=== PATIENT | female | born 1965 | race American Indian/Alaskan Native ===

== ENCOUNTER 2016-08-19 09:59 | Day surgery (SDC) | payer BC ==
[~2016-08-19] VITALS: Ht 157.5 cm; Wt 74.8 kg
[~2016-08-19 09:59] MED LIST: BUPIVACAINE MPF 0.5% 30 ML VIAL. ONE; CETI10TA22 PO; CLINDAMYCIN 600MG PREMIX 50 ML IV PRN; DEXAMETHASONE SOD PHOS 4 MG/ML VIAL ONE; FENTANYL PF 100 MCG/2 ML VIAL. IV PRN; GABA-586 PO; HYDR-971 PO; HYDROMORPHONE 2 MG/ML VIAL. IV PRN; IBUP-1060 PO; IBUP200T6 PO; IV RINGERS,LACTATED 1000ML 1,000 ML IV SCH; LIDOCAINE 1% 1 ML SYRINGE. ID PRN; LIDOCAINE 1% PF 30 ML VIAL. ONE; MORPHINE SULFATE 2 MG/ML DISP.SYRIN. IV PRN; ONDANSETRON PF 4 MG/2 ML VIAL. IV PRN; POVIDONE-IODINE 10% TOPICAL OINTMENT 28GM TUBE. TP ONE; PROAIR HFA8.5 GM INH; PROCHLORPERAZINE 10 MG/2 ML VIAL. IV PRN
[2016-08-19 10:53] LABS: HEMATOCRIT 39.1 % (36.0-47.0); HEMOGLOBIN 13.3 g/dL (12.0-15.5); RED BLOOD COUNT 4.44 x10^6/uL (3.50-5.40); RED CELL DISTRIBUTION WIDTH 13.5 % (11.5-14.5); WHITE BLOOD COUNT 8.4 x10^3/uL (4.0-11.0)
[2016-08-19] MEDS ORDERED: FENTANYL PF 100 MCG/2 ML VIAL. ONE (11:24)
[2016-08-19] MEDS ORDERED: ONDANSETRON PF 4 MG/2 ML VIAL. ONE (11:24)
[2016-08-19] MEDS ORDERED: FAMOTIDINE 20 MG/2 ML VIAL ONE (11:24)
[2016-08-19] MEDS ORDERED: MIDAZOLAM HCL 2 MG/2 ML VIAL. ONE (11:24)
[2016-08-19] MEDS ORDERED: LIDOCAINE 2% 100 MG/5 ML DISP.SYRIN. ONE (11:24)
[2016-08-19] MEDS ORDERED: PROPOFOL 20 ML IV ONE (11:24)
[2016-08-19] MEDS ORDERED: SEVOFLURANE 31 TO 60 MINUTES. IH ONE (12:07)
--- NOTE | 2016-08-19 12:30 | PDOC4 ---
Operative Note Operative Note Surgeon: Berna Pre op DX: Symptomatic hardware, right foot Post op DX: same Procedure: removal of screw, deep right foot Anesthesia LMA with local Hemostasis: right ankle tourniquet at 250mmHg EBL: 0mL Materials: 3-0 vicryl, 4-0 nylon Intraoperative findings: Note slightly prominent screw head medial proximal 1st metatarsal removed without incident Patient tolerated anesthesia and procedure well. Xrays to be taken in PACU. Post op instructions in chart ESTEPHANIA FERRARO DPM Aug 19, 2016 12:30
[2016-08-19] MEDS ORDERED: HYDR-971 PO (12:45)
[2016-08-19] MEDS ORDERED: HYDROCODONE/APAP 5/325MG TABLET. ONE (12:51)
[2016-08-19] MEDS ORDERED: HYDROCODONE/APAP 5/325MG TABLET. PO ONE (13:00)
[2016-08-19 13:10] VITALS: BP 132/82
--- NOTE | 2016-08-19 15:42 | RAD ---
Indication: Post pin removal. Technique: 3 views of the right foot are submitted for review. No comparison is available. Findings: Second digit pin has been removed. Second proximal phalangeal joint appears ankylosed. No fracture or dislocation is apparent. Postsurgical changes at the first tarsometatarsal joint are noted. Degenerative changes at the first metatarsal-phalangeal joint are noted. There likely has also been bunionectomy. There is bone demineralization. Impression: Interval removal of pin from second digit.
--- NOTE | 2016-08-19 18:54 | OP ---
DATE OF SURGERY: 08/19/2016 PREOPERATIVE DIAGNOSIS: Symptomatic hardware, right foot. POSTOPERATIVE DIAGNOSIS: Symptomatic hardware, right foot. PROCEDURE: Removal of deep symptomatic hardware of right foot. SURGEON: Dr. Maile Coronel. ANESTHESIA: LMA with local. HEMOSTASIS: Right ankle tourniquet at 250 mmHg. INDICATIONS: The patient is a 51-year-old female who underwent a Lapidus bunionectomy in April 2017. She was having normal postoperative course until she transitioned into tennis shoe when she started to notice pain and swelling to the medial foot of the right foot. Radiograph taken in the office on 08/14/2016 show satisfactory arthrodesis of the first metatarsal cuneiform joint with questionable prominence of the homerun screw, and thus, discussed with the patient her treatment options to include removal of all hardware versus the singular screw of medial foot. The patient felt that she was not having pain at the top of the foot with the plate and screw, thus she only wanted the singular screw removed which presses in her shoe. Discussed with the patient possible continued pain and swelling. No guarantees were made, discussed the possible complications of infection, need for further surgery, and delayed or nonhealing. The patient signed consent freely, and all questions were answered. DESCRIPTION OF THE PROCEDURE: The patient was transported to the operating room via cart and placed on the operating room table in supine position. Final verification of the surgery and the patient's limb was performed. She was given an LMA and a local modified block to the first ray consisting of 1:1 mixture of 1% lidocaine plain and 0.5% Marcaine plain, 10 mL total. The right foot was prepped and draped in the usual aseptic manner, and a well-padded tourniquet was placed over the right ankle. C-arm fluoroscopy was utilized to position the incision, noted the site of the screw head and marked with ink pen under C-arm fluoroscopy. 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 Next, the wound was copiously irrigated with sterile saline, and the periosteum was reapproximated with a 3-0 Vicryl, and the skin was reapproximated with 3-0 Vicryl and 4-0 nylon. A postoperative injection was given of 4 mg of Decadron, and the wound was dressed with Betadine ointment, Adaptic gauze, 4 x 4, Kerlix, bandage roll, and a Coban. The patient is to keep the dressing clean, dry, and intact. The tourniquet was deflated, and good perfusion was noted at all digits of the right foot. The patient is to be minimal walking in a surgical shoe and elevate the right lower extremity. She will follow up in clinic in 1 week. Postoperative instructions are in the chart. RACHAEL PRIDE MD DR: STEPHANIE/lady JOB#: [id number] / [id number]
--- NOTE | 2016-08-19 19:15 | PDOC2 ---
CONSULT Date of Consult Date of Consult DATE: 08/19/16 TIME: 10:13 Reason for Consult Reason for Consult: pre op clearance Referring Physician Referring Physician: DR WINTER History of Present Illness Reason for Visit: A 51 f with no significant medical problems presented to out pt surgery for hard leroy removal due to increased pain for few weeks, 8/10, worse with walking , She is scheduled for elective surgery by podiatry. , Past Medical History Pulmonary: Asthma Family History Family History: Other Social History ALCOHOL: none Drugs: None Lives: with Family Current Medications Current Medications Current Medications Ondansetron HCl (Zofran) 4 mg PRN Q6HRS PRN IV Nausea; Start 08/19/16 at 07:00 ; Stop 08/19/16 at 13:40; Status DC Fentanyl Citrate (Fentanyl 2ml Vial) 25 mcg PRN Q5MIN PRN IV MILD PAIN; Start 08/19/16 at 07:00; Stop 08/19/16 at 13:40; Status DC Fentanyl Citrate (Fentanyl 2ml Vial) 50 mcg PRN Q5MIN PRN IV MODERATE PAIN; Start 08/19/16 at 07:00; Stop 08/19/16 at 13:40; Status DC Morphine Sulfate 1 mg 1 mg PRN Q10MIN PRN IV SEVERE PAIN; Start 08/19/16 at 07: 00; Stop 08/19/16 at 13:40; Status DC Lactated Ringer's (Iv Lactated Ringers) 1,000 ml @ 30 mls/hr Q24H IV Last administered on 08/19/16t 10:57; Start 08/19/16 at 07:00; Stop 08/19/16 at 13:40 ; Status DC Lidocaine HCl 2 ml 1X PRN PRN ID IV START; Start 08/19/16 at 07:00; Stop at 13:40; Status DC Hydromorphone HCl (Dilaudid) 0.5 mg PRN Q10MIN PRN IV SEVERE PAIN, Second choice; Start 08/19/16 at 07:00; Stop 08/19/16 at 13:40; Status DC Prochlorperazine Edisylate 5 mg 5 mg PACU PRN PRN IV NAUSEA; Start 08/19/16 at 07:00; Stop 08/19/16 at 13:40; Status DC Clindamycin Phosphate (Cleocin 600 Mg Premix) 50 ml @ 100 mls/hr 1X PREOP PRN IV . Last administered on 08/19/16 11:40; Start 08/19/16 at 08:00; Stop at 13:40; Status DC Lidocaine HCl 30 ml STK-MED ONCE .ROUTE Last administered on 08/19/16 11:51; Start 08/19/16 at 08:51; Stop 08/19/16 at 08:52; Status DC Bupivacaine HCl (Sensorcaine Mpf 0.5%) 30 ml STK-MED ONCE .ROUTE Last administered on 08/19/16 11:51; Start 08/19/16 at 08:51; Stop 08/19/16 at 08:52 ; Status DC Povidone Iodine ( Betadine Oint) 28 jaguar STK-MED ONCE TP Last administered on 12:16; Start 08/19/16 at 08:51; Stop 08/19/16 at 08:52; Status DC Dexamethasone Sodium Phosphate (Decadron) 4 mg STK-MED ONCE .ROUTE Last administered on 08/19/16 12:16; Start 08/19/16 at 08:52; Stop 08/19/16 at 08:53 ; Status DC Famotidine (Pepcid) 20 mg STK-MED ONCE .ROUTE ; Start 08/19/16 at 11:24; Stop at 11:25; Status DC Ondansetron HCl 4 mg 4 mg STK-MED ONCE .ROUTE ; Start 08/19/16 at 11:24; Stop at 11:25; Status DC Propofol (Diprivan) 20 ml @ As Directed STK-MED ONCE IV ; Start 08/19/16 at 11: 24; Stop 08/19/16 at 11:25; Status DC Lidocaine HCl 100 mg STK-MED ONCE .ROUTE ; Start 08/19/16 at 11:24; Stop at 11:25; Status DC Midazolam HCl (Versed) 2 mg STK-MED ONCE .ROUTE ; Start 08/19/16 at 11:24; Stop 08/19/16 at 11:25; Status DC Fentanyl Citrate (Fentanyl 2ml Vial) 100 mcg STK-MED ONCE .ROUTE ; Start at 11:24; Stop 08/19/16 at 11:25; Status DC Sevoflurane (Ultane) 30 ml STK-MED ONCE IH ; Start 08/19/16 at 12:07; Stop 08/19 at 12:08; Status DC Acetaminophen/ Hydrocodone Bitart (Lortab 5/325) 1 tab STK-MED ONCE .ROUTE ; Start 08/19/16 at 12:51; Stop 08/19/16 at 12:52; Status DC Acetaminophen/ Hydrocodone Bitart (Lortab 5/325) 1 tab 1X ONCE PO Last administered on 08/19/16t 12:56; Start 08/19/16 at 13:00; Stop 08/19/16 at 13:01 ; Status DC Active Scripts Active Reported Paden 5-325 Tablet (Acetaminophen/Hydrocodone Bitart) 1 Each Tablet 1-2 Tab PO Q4-6HRS Gabapentin 300 Mg Capsule 300 Mg PO QHS Ibuprofen 200 Mg Tablet 400 Mg PO PRN PRN Zyrtec (Cetirizine Hcl) 10 Mg Tablet 10 Mg PO DAILY Proair Hfa Inhaler (Albuterol Sulfate) 8.5 Gm Hfa.aer.ad 1 Puff INH PRN Q6HRS PRN Allergies Allergies: Coded Allergies: Penicillins (Verified Allergy, Intermediate, Swelled up/Rash, 08/19/16) ROS General: No: Appetite, Chills, Fatigue, Malaise, Night Sweats, Other PSYCHOLOGICAL ROS: No: Anxiety, Behavioral Disorder, Concentration difficultie , Decreased libido, Depression, Disorientation, Hallucinations, Hostility, Irritablity, Memory difficulties, Mood Swings, Obsessive thoughts, Other, Physical abuse, Sexual abuse, Sleep disturbances, Suicidal ideation HEENT: No: Epistaxis, Heacaches, Hearing change, Nasal congestion, Nasal discharge, Oral lesions, Other, Sinus pain, Sneezing, Snoring, Sore Throat, Tinnitus, Vertigo, Visual Changes, Vocal changes Hematological and Lymphatic: No: Bleeding Problems, Blood Clots, Blood Transfusions, Brusing, Night Sweats, Other, Pallor, Swollen Lymph Nodes ENDOCRINE: No: Breast Changes, Galactorrhea, Hair Pattern Changes, Hot Flashes , Malaise/lethargy, Mood Swings, Other, Palpitations, Polydipsia/polyuria, Skin Changes, Temperature Intolerance, Unexpected Weight Changes Respiratory: No: Cough, Hemoptysis, Orthopnea, Other, Pleuritic Pain, SOB with excertion, Shortness of breath, Sputum Changes, Stridor, Tachypnea, Wheezing Cardiovascular: No Chest Pain, No Edema, No Lt Headedness, No Orthopnea, No Other, No Palpitations, No Paroxysmal Noc. Dyspnea Musculoskeletal: Yes Joint Pain Neurological: No Behavorial Changes, No Bowel/Bladder ControlChng, No Confusion , No Dizziness, No Gait Disturbance, No Headaches, No Impaired Coord/balance, No Memory Loss, No Numbness/Tingling, No Other, No Seizures, No Speech Problems , No Tremors, No Visual Changes, No Weakness Physical Exam General: Alert, Oriented X3 HEENT: Atraumatic Lungs: Clear to auscultation Heart: Normal S1, Normal S2 Abdomen: Normal bowel sounds, Soft Extremities: No clubbing Skin: No rashes Neuro: Normal speech, Normal tone MUSCULOSKELETAL: No deformity Vitals VITALS Vital Signs Date Time Temp Pulse Resp B/P Pulse Ox O2 Delivery O2 Flow Rate FiO2 08/19/16 13:10 98.4 75 15 132/82 99 Room Air 98.4 08/19/16 12:36 10 Labs Labs Laboratory Tests Test 08/19/16 10:48 White Blood Count 8.4x10^3/uL (4.0-11.0) Red Blood Count 4.44x10^6/uL (3.50-5.40) Hemoglobin 13.3g/dL (12.0-15.5) Hematocrit 39.1% (36.0-47.0) Mean Corpuscular Volume 88fL (79-100) Mean Corpuscular Hemoglobin 30pg (25-35) Mean Corpuscular Hemoglobin Concent 34g/dL (31-37) Red Cell Distribution Width 13.5% (11.5-14.5) Platelet Count 263x10^3/uL (140-400) Laboratory Tests Test 08/19/16 10:48 White Blood Count 8.4x10^3/uL (4.0-11.0) Red Blood Count 4.44x10^6/uL (3.50-5.40) Hemoglobin 13.3g/dL (12.0-15.5) Hematocrit 39.1% (36.0-47.0) Mean Corpuscular Volume 88fL (79-100) Mean Corpuscular Hemoglobin 30pg (25-35) Mean Corpuscular Hemoglobin Concent 34g/dL (31-37) Red Cell Distribution Width 13.5% (11.5-14.5) Platelet Count 263x10^3/uL (140-400) Assessment/Plan Assessment/Plan Right Lower extremity pain due to hard leroy PLAN Hard leroy removal today cbc/bmp Pain control no acute medical issues, very low risk for surgery anticipated DC after procedure. CHIQUITA PRATT MD Aug 19, 2016 19:15
== END 2016-08-19 13:30 | disposition home or self-care (01) ==
LOC: SURG 09:59
PROVIDERS: ATTEND Podiatrist Foot & Ankle Surgery
DX: Z47.2 Encounter for removal of internal fixation device (principal); J45.909 Unspecified asthma, uncomplicated; E66.9 Obesity, unspecified; Z90.49 Acquired absence of other specified parts of digestive tract; Z72.89 Other problems related to lifestyle
CPT/HCPCS: 20680; 36415; 73630; 85027; C1769; J1100; J2250; J2405; J2704; J3010; J3490; S0028

== ENCOUNTER 2016-11-22 03:28 | Inpatient (IN) | payer BC, OTHER ==
[~2016-11-22] VITALS: Ht 157.5 cm; Wt 96.2 kg
[~2016-11-22 03:28] MED LIST changes: -BUPIVACAINE MPF 0.5% 30 ML VIAL. ONE; -CLINDAMYCIN 600MG PREMIX 50 ML IV PRN; -DEXAMETHASONE SOD PHOS 4 MG/ML VIAL ONE; -FENTANYL PF 100 MCG/2 ML VIAL. IV PRN; -HYDROMORPHONE 2 MG/ML VIAL. IV PRN; +IBUP-1227 PO; -IBUP200T6 PO; -IV RINGERS,LACTATED 1000ML 1,000 ML IV SCH; -LIDOCAINE 1% 1 ML SYRINGE. ID PRN; -LIDOCAINE 1% PF 30 ML VIAL. ONE; -MORPHINE SULFATE 2 MG/ML DISP.SYRIN. IV PRN; -ONDANSETRON PF 4 MG/2 ML VIAL. IV PRN; -POVIDONE-IODINE 10% TOPICAL OINTMENT 28GM TUBE. TP ONE; -PROCHLORPERAZINE 10 MG/2 ML VIAL. IV PRN
[2016-11-22] MEDS ORDERED: HYDROmorphone 2 MG/ML VIAL IV ONE (04:30)
[2016-11-22] MEDS ORDERED: ONDANSETRON ODT 4 MG TAB.RAPDIS. PO ONE (04:30)
--- NOTE | 2016-11-22 05:44 | PHYS DOC ---
Past Medical History Past Medical History: No Pertinent History Past Surgical History: Other Additional Past Surgical Histo: R. FOOT Alcohol Use: Rarely Drug Use: None Adult General Chief Complaint Chief Complaint: LOWEREXTREMITY INJURY HPI HPI Patient is a 51 year old female who presents here today secondary to falling over a wire. Patient reports that she was taking a walk in her street and of the corner there was a wire that she tripped over. Patient has any fevers shakes chills nausea vomiting diarrhea or abdominal pain. Patient has no history of hypertension diabetes liver longer kidney problems. Patient had no abdominal surgeries in the past. Patient does smoke no alcohol or drugs. X-ray of left knee and tib-fib both revealed a comminuted depressed tibial plateau with a fracture of the fibular metaphysis. Review of systems Constitutional: Denies fever or chills [] Eyes: Denies change in visual acuity, redness, or eye pain [] All other review systems are negative except as documented in the history of present illness portion. Physical exam Constitutional: Well developed, well nourished, no acute distress, non-toxic appearance. [] HENT: Normocephalic, atraumatic, bilateral external ears normal, oropharynx moist, no oral exudates, nose normal. [] Eyes: conjunctiva normal, no discharge. [] Neck: Normal range of motion, no tenderness, supple, no stridor. [] Cardiovascular:Heart rate regular rhythm, Lungs & Thorax: Bilateral breath sounds clear to auscultation [] Abdomen: Bowel sounds normal, soft, no tenderness, no masses, no pulsatile masses. [] Skin: Warm, dry, Back: No tenderness, Extremities: Soft tissue swelling deformity tenderness to her knee. Exam limited secondary to severe pain. Neurologic: Alert and oriented X 3, normal motor function, normal sensory function, no focal deficits noted. [] Psychologic: Affect normal, judgement normal, mood normal. [] Assessment and plan 51-year-ol female who presents here today with a fracture of her left tibia and fibula. This is a comminuted fracture the tibial plateau is depressed Case discussed with Dr. Jaimes who is agreed to assist us with management of this pain. Patient be admitted to the medical service and he will assist with surgery. Patient was treated with Dilaudid IV to assist with the pain. Current Medications Current Medications Current Medications Medications (Trade) Dose Ordered Sig/Rahul Start Time Stop Time Status Last Admin Dose Admin Fentanyl Citrate (Fentanyl 2ml Vial) 50 mcg PRN Q1HR PRN 11/22/16 05:45 11/23/16 05:44 DC 11/22/16 11:48 50 MCG Hydromorphone HCl (Dilaudid) 1 mg 1X ONCE 11/22/16 04:30 11/22/16 04:31 DC 11/22/16 04:20 1 MG Ondansetron HCl (Zofran Odt) 4 mg 1X ONCE 11/22/16 04:30 11/22/16 04:31 DC 11/22/16 04:20 4 MG Ondansetron HCl (Zofran) 4 mg PRN Q8HRS PRN 11/22/16 05:45 11/23/16 05:44 DC 11/22/16 18:18 4 MG Sodium Chloride 1,000 ml @ 125 mls/hr Q8H 11/22/16 05:44 11/23/16 05:43 DC 11/22/16 21:54 125 MLS/HR Allergies Allergies Allergies Coded Allergies Type Severity Reaction Last Updated Verified Penicillins Allergy Intermediate Swelled up/Rash 08/19/16 Yes Current Patient Data Vital Signs Vital Signs Date Time Temp Pulse Resp B/P (MAP) Pulse Ox O2 Delivery O2 Flow Rate FiO2 11/22/16 03:42 98.5 86 16 97 Room Air 98.5 EKG EKG [] Radiology/Procedures Radiology/Procedures [] Course & Med Decision Making Course & Med Decision Making Pertinent Labs and Imaging studies reviewed. (See chart for details) [] Dragon Disclaimer Dragon Disclaimer This electronic medical record was generated, in whole or in part, using a voice recognition dictation system. Departure Departure Impression: Primary Impression: Tibial plateau fracture, left Additional Impression: Fracture of head of fibula Disposition: ADMITTED INPATIENT Admitting Physician: Kashmir Jones Referrals: NO PCP (PCP) Scripts Sennosides/Docusate Sodium (SENNA-TIME S TABLET) 1 Each Tablet 1 TAB PO PRN BID Y for CONSTIPATION, #10 TAB Prov: SONAM CALDERON MD 11/24/16 Oxycodone Hcl/Acetaminophen (OXYCODONE-ACETAMINOPHEN 10-325) 1 Each Tablet 1 TAB PO PRN Q4HRS Y for PAIN, #20 TAB Prov: SONAM CALDERON MD 11/24/16 Problem Qualifiers Primary Impression: Tibial plateau fracture, left Encounter type: initial encounter Fracture type: closed Qualified Codes: S82.142A - Displaced bicondylar fracture of left tibia, initial encounter for closed fracture Additional Impression: Fracture of head of fibula Encounter type: initial encounter Fracture type: closed Laterality: left Qualified Codes: S82.832A - Other fracture of upper and lower end of left fibula, initial encounter for closed fracture MOHAN YOUNG MD Nov 22, 2016 05:44
[2016-11-22] MEDS ORDERED: ONDANSETRON PF 4 MG/2 ML VIAL. IV PRN (05:45)
--- NOTE | 2016-11-22 06:09 | ACF ---
Admission Forms Criteria MUSCULOSKELETAL DISEASE GRG Clinical Indications for Admission to Inpatient Care (Place 'X' for any and all applicable criteria): Hospital admission is needed for appropriate care of the patient because of 1 or more of the following: [X]I. Fracture, dislocation, or other musculoskeletal injury requiring inpatient care(medical) as indicated by 1 or more of the following(4)(5)(6)(7) [ ]a) Vertebral fracture requiring observation for instability or neurologic compromise (8) [ ]b) Compartment syndrome (proven or cannot be ruled out during observation level of care) (9) [ ]c) Limb-threatening injury [ ]d) Major injury requiring inpatient stabilization such as traction initiation or external fixation before internal fixation or closure of complex or open fracture [ ]e) Major injury requiring inpatient treatment after emergency or observation level care (as appropriate) [X]f) Severe pain requiring acute inpatient management [ ]g) Injury with suspicion of abuse or neglect (eg., child, dependent elderly) [ ]II. Newly diagnosed or suspected bone, joint, or orthopedic device infection (e.g., osteomyelitis, septic arthritis) needing 1 or more of the following(1)(2)(3) [ ]a) IV antibiotics that cannot be initiated in other than inpatient setting (e.g., patient too unstable or home infusion not available) [ ]b) Device removal or replacement [ ]c) Bone or soft tissue debridement [ ]d) Joint drainage (drain placement or repetitive aspirations) [ ]III. Severe rheumatologic disease (e.g., systemic lupus erythematosus, rheumatoid arthritis) with complications or comorbidities (Also use Optimal Recovery Care Criteria or General Recovery Criteria as appropriate on the basis of predominant condition), including 1 or more of the following( 10)(11)(12)(13) [ ]a) Severe infection (e.g., COFFEE HOST infection, sepsis) (14) [ ]b) Respiratory complications, including 1 or more of the following : [ ]i) Pleural effusion with respiratory compromise [ ]ii) Pulmonary hypertension with congestive failure [ ]iii) Respiratory failure [ ]iv) Pulmonary hemorrhage (15) [ ]c) Hematologic disease, including 1 or more of the following: [ ]i) Coagulopathy with bleeding [ ]ii) Thrombosis with hypercoagulable state [ ]iii) Thrombotic thrombocytopenic purpura [ ]d) Cerebritis with seizures, psychosis, or other severe abnormalities [ ]e) Vertebral destruction with monitoring needed for cervical myelopathy& possible respiratory compromise [ ]f) Exacerbation that requires inpatient treatment (e.g., intravenous immunosuppression) (16) [ ]g) Acute renal failure [ ]h) Cerebritis with seizures, psychosis, Altered mental status, or other neurologic abnormalities [ ]i) Pericardial effusion with tamponade [ ]j) Vertebral destruction, with monitoring needed for cervical myelopathy and possible respiratory compromise [ ]IV. Severe vasculitis with complications or comorbidities (Also use Optimal Recovery Care Criteria General Recovery Criteria as appropriate on the basis of predominant condition), including 1 or more of the following(11)(12)(17)(18)(19)(20) [ ]a) Exacerbation that requires inpatient treatment (e.g., intravenous immunosuppression) (19)(21) [ ]b) Pulmonary hemorrhage (15) [ ]c) COFFEE HOST vasculitis with seizures, psychosis, Altered mental status that is severe or persistent, or other severe abnormalities (22) [ ]d) Cerebral infarction [ ]e) Gastrointestinal ischemia [ ]f) Gangrene or threatened amputation [ ]g) Renal failure (16) [ ]h) Other significant complications of vasculitis ( eg., tissue or organ ischemia, organ dysfunction ) [ ]V. Severe myopathy as indicated by 1 or more of the following (28)(29) [ ]a) New onset of airway compromise or inability to swallow [ ]b) Respiratory deterioration with observation needed for impending respiratory failure [ ]c) Exacerbation that requires inpatient treatment (e.g., intravenous immunosuppression) [ ]. Severe crystal gout (arthropathy) indicated by 1 or more of the following (23)(24) [ ]a) Severe pain requiring acute inpatient management [ ]b) Exacerbation that requires inpatient treatment (e.g., intravenous treatment) [ ]VII.Rhabdomyolysis and 1 or more of the following (25)(26)(27) [ ]a) Acute renal failure [ ]b) Need for intravenous hydration after emergency or observation level care (as appropriate) [ ]c) Inability to maintain oral hydration [ ]d) Change in mental status [ ]e) Electrolyte abnormality that remains after emergency or observation level care (as appropriate) [ ]VIII Post amputation complication, as indicated by ANY ONE of the following [ ]a) Infection [ ]b) Dehiscence [ ]c) Myodesis failure [ ]IX. Severe pain requiring acute inpatient management due to musculoskeletal condition [ ]X. Musculoskeletal Disease and ALL of the following: [ ]a) Symptom or finding for which emergency and observation care have failed or are not considered appropriate (Use General Criteria: Observation Care as appropriate) [ ]b) Presence of ANY ONE of the following [ ]i) A General Admission Criteria [ ]ii) A Pediatric General Admission Criteria The original [facility] content created by [facility] [employer] has been revised. The portions of the content which have been revised are identified through the use of italic text or in bold, and [facility] has neither reviewed nor approved the modified material. All other unmodified content is copyright [facility]. Please see references footnoted in the original [facility] edition 2016 Admission Criteria Met?: Yes BELGICA BOYER Nov 22, 2016 06:09
[2016-11-22 06:17] LABS: BASO # 0.1 x10^3/uL (0.0-0.2); BASO % 1 % (0-3); EOS % 0 % (0-3); HEMATOCRIT 36.3 % (36.0-47.0); HEMOGLOBIN 12.4 g/dL (12.0-15.5); LYMPH % 17 % (24-48); MEAN CORPUSCULAR HEMOGLOBIN 30 pg (25-35); MEAN CORPUSCULAR HGB CONC 34 g/dL (31-37); MEAN CORPUSCULAR VOLUME 89 fL (79-100); MONO % 5 % (0-9); NEUT % 77 % (31-73); PLATELET COUNT 284 x10^3/uL (140-400); RED BLOOD COUNT 4.07 x10^6/uL (3.50-5.40); RED CELL DISTRIBUTION WIDTH 13.5 % (11.5-14.5); WHITE BLOOD COUNT 11.7 x10^3/uL (4.0-11.0)
[2016-11-22 06:28] LABS: PROTHROMBIN TIME PATIENT 12.5 SEC (11.7-14.0)
[2016-11-22 06:32] LABS: CALCIUM 8.6 mg/dL (8.5-10.1); CREATININE 0.8 mg/dL (0.6-1.0); GFR 75.3; POTASSIUM 3.6 mmol/L (3.5-5.1)
[2016-11-22 06:38] LABS: ALBUMIN 3.8 g/dL (3.4-5.0); TOTAL BILIRUBIN 0.2 mg/dL (0.2-1.0); TOTAL PROTEIN 7.6 g/dL (6.4-8.2)
[2016-11-22] MEDS: IV NORMAL SALINE 1000ML BAG 1,000 ML IV SCH ×3 (06:49→21:54)
[2016-11-22] MEDS: fentaNYL PF VIAL 100 MCG/2 ML VIAL IV PRN ×4 (06:50→11:48)
[2016-11-22 07:00] VITALS: BP 126/81
--- NOTE | 2016-11-22 08:07 | PDOC ---
ORTHO PROGRESS NOTES Vitals Vital Signs Date Time Temp Pulse Resp B/P (MAP) Pulse Ox O2 Delivery O2 Flow Rate FiO2 11/22/16 07:00 98.7 86 18 126/81 (96) 95 Room Air 98.7 Labs Laboratory Tests Test 11/22/16 06:10 White Blood Count 11.7 x10^3/uL (4.0-11.0) Red Blood Count 4.07 x10^6/uL (3.50-5.40) Hemoglobin 12.4 g/dL (12.0-15.5) Hematocrit 36.3 % (36.0-47.0) Mean Corpuscular Volume 89 fL (79-100) Mean Corpuscular Hemoglobin 30 pg (25-35) Mean Corpuscular Hemoglobin Concent 34 g/dL (31-37) Red Cell Distribution Width 13.5 % (11.5-14.5) Platelet Count 284 x10^3/uL (140-400) Neutrophils (%) (Auto) 77 % (31-73) Lymphocytes (%) (Auto) 17 % (24-48) Monocytes (%) (Auto) 5 % (0-9) Eosinophils (%) (Auto) 0 % (0-3) Basophils (%) (Auto) 1 % (0-3) Neutrophils # (Auto) 9.0 x10^3uL (1.8-7.7) Lymphocytes # (Auto) 2.0 x10^3/uL (1.0-4.8) Monocytes # (Auto) 0.5 x10^3/uL (0.0-1.1) Eosinophils # (Auto) 0.1 x10^3/uL (0.0-0.7) Basophils # (Auto) 0.1 x10^3/uL (0.0-0.2) Prothrombin Time 12.5 SEC (11.7-14.0) Prothromb Time International Ratio 1.0 (0.8-1.1) Sodium Level 145 mmol/L (136-145) Potassium Level 3.6 mmol/L (3.5-5.1) Chloride Level 109 mmol/L (98-107) Carbon Dioxide Level 29 mmol/L (21-32) Anion Gap 7 (6-14) Blood Urea Nitrogen 7 mg/dL (7-20) Creatinine 0.8 mg/dL (0.6-1.0) Estimated GFR (Cockcroft-Gault) 75.3 BUN/Creatinine Ratio 9 (6-20) Glucose Level 138 mg/dL (70-99) Calcium Level 8.6 mg/dL (8.5-10.1) Total Bilirubin 0.2 mg/dL (0.2-1.0) Aspartate Amino Transf (AST/SGOT) 81 U/L (15-37) Alanine Aminotransferase (ALT/SGPT) 56 U/L (14-59) Alkaline Phosphatase 108 U/L (46-116) Total Protein 7.6 g/dL (6.4-8.2) Albumin 3.8 g/dL (3.4-5.0) Albumin/Globulin Ratio 1.0 (1.0-1.7) Laboratory Tests Test 11/22/16 06:10 White Blood Count 11.7 x10^3/uL (4.0-11.0) Red Blood Count 4.07 x10^6/uL (3.50-5.40) Hemoglobin 12.4 g/dL (12.0-15.5) Hematocrit 36.3 % (36.0-47.0) Mean Corpuscular Volume 89 fL (79-100) Mean Corpuscular Hemoglobin 30 pg (25-35) Mean Corpuscular Hemoglobin Concent 34 g/dL (31-37) Red Cell Distribution Width 13.5 % (11.5-14.5) Platelet Count 284 x10^3/uL (140-400) Neutrophils (%) (Auto) 77 % (31-73) Lymphocytes (%) (Auto) 17 % (24-48) Monocytes (%) (Auto) 5 % (0-9) Eosinophils (%) (Auto) 0 % (0-3) Basophils (%) (Auto) 1 % (0-3) Neutrophils # (Auto) 9.0 x10^3uL (1.8-7.7) Lymphocytes # (Auto) 2.0 x10^3/uL (1.0-4.8) Monocytes # (Auto) 0.5 x10^3/uL (0.0-1.1) Eosinophils # (Auto) 0.1 x10^3/uL (0.0-0.7) Basophils # (Auto) 0.1 x10^3/uL (0.0-0.2) Prothrombin Time 12.5 SEC (11.7-14.0) Prothromb Time International Ratio 1.0 (0.8-1.1) Sodium Level 145 mmol/L (136-145) Potassium Level 3.6 mmol/L (3.5-5.1) Chloride Level 109 mmol/L (98-107) Carbon Dioxide Level 29 mmol/L (21-32) Anion Gap 7 (6-14) Blood Urea Nitrogen 7 mg/dL (7-20) Creatinine 0.8 mg/dL (0.6-1.0) Estimated GFR (Cockcroft-Gault) 75.3 BUN/Creatinine Ratio 9 (6-20) Glucose Level 138 mg/dL (70-99) Calcium Level 8.6 mg/dL (8.5-10.1) Total Bilirubin 0.2 mg/dL (0.2-1.0) Aspartate Amino Transf (AST/SGOT) 81 U/L (15-37) Alanine Aminotransferase (ALT/SGPT) 56 U/L (14-59) Alkaline Phosphatase 108 U/L (46-116) Total Protein 7.6 g/dL (6.4-8.2) Albumin 3.8 g/dL (3.4-5.0) Albumin/Globulin Ratio 1.0 (1.0-1.7) Assessment and Plan please see full note surgery unlikely this weekend due to edema lovenox, PO pain meds NWB MIGDALIA CAPPS II, MD Nov 22, 2016 08:07
[2016-11-22] MEDS ORDERED: SENNOSIDES/DOCUSATE 8.6/50MG TABLET. PO PRN (08:15)
--- NOTE | 2016-11-22 08:24 | RAD ---
EXAM: Chest one view. HISTORY: Preoperative risk factors, trauma. COMPARISON: 03/31/2007. FINDINGS: A frontal view of the chest is obtained. There are no confluent infiltrates. There is no pneumothorax or pleural effusion. The heart is not enlarged. The aorta is tortuous. IMPRESSION: 1. No confluent infiltrates.
--- NOTE | 2016-11-22 08:27 | RAD ---
EXAM: 1. Left knee 3 views. 2. Left tibia/fibula 2 views. HISTORY: Fall, pain. COMPARISON: None. FINDINGS: There is a comminuted depressed fracture of the lateral tibial plateau. This results in a fracture gap of approximately 1 cm. Depression of the posterior aspect of the plateau measures approximately 6 mm. The fracture also intersects the proximal tibiofibular joint. There is a nondisplaced fracture of the proximal fibular metaphysis. Osteophytes indicate mild to moderate tricompartmental osteoarthritis of the knee. There is a moderate joint effusion. Surrounding soft tissue echo most as is noted. No fractures are appreciated more distally within the tibia/fibula. The joint spaces and alignment of the ankle appear grossly maintained. IMPRESSION: 1. Comminuted depressed fracture of the lateral tibial plateau. 2. Nondisplaced fracture of the proximal fibular metaphysis. 3. Mild to moderate osteoarthritis of the knee.
[2016-11-22] MEDS: ENOXAPARIN 40 MG/0.4 ML SYRINGE. SQ SCH (09:40)
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
[2016-11-22] MEDS ORDERED: NON FORMULARY ITEM (Albuterol Sulfate (Proair Hfa Inhaler) 1 PUFF) INH PRN (10:45)
[2016-11-22 11:00] VITALS: BP 140/85
[2016-11-22] MEDS ORDERED: ALBUTEROL SULFATE 2.5 MG/3 ML NEBU. NEB PRN (11:15)
[2016-11-22] MEDS: CETIRIZINE HCL 10 MG TABLET. PO SCH (11:47)
--- NOTE | 2016-11-22 12:15 | EKG ---
[facility] [address] [place] [address] Test Date: 2016-11-22 Test Time: 06:04:56 Pat Name: ONELIA BAER Department: Room: 436 Gender: F Health Unit Clerk: BONNIE : 1965 Requested By: MOHAN YOUNG Order Number: [id number] Reading MD: Andre Hernandez Measurements Intervals [place] Rate: 80 P: 34 OK: 162 QRS: 28 QRSD: 78 T: 38 QT: 386 QTc: 449 Interpretive Statements SINUS RHYTHM NONSPECIFIC ST-T WAVE CHANGES. RI6.01 No previous ECG available for comparison Electronically Signed On 11-24-2016 10:51:02 CDT by Andre Hernandez
[2016-11-22] MEDS: oxyCODONE/APAP 7.5/325 1 TAB TABLET PO PRN ×3 (12:20→23:59)
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
[2016-11-22 13:59] LABS: BILIRUBIN,URINE NEGATIVE (NEG); GLUCOSE,URINE NEGATIVE (NEG); NITRITE,URINE NEGATIVE (NEG); PROTEIN,URINE 30 mg/dL (NEG-TRACE); UROBILINOGEN,URINE 0.2 mg/dL (0.2 mg/dL)
[2016-11-22 14:20] LABS: BACTERIA,URINE FEW /HPF (0-FEW); SQUAMOUS EPITHELIAL CELL,UR FEW /LPF; WBC,URINE RARE /HPF (0-4)
[2016-11-22 15:00] VITALS: BP 131/80
[2016-11-22] MEDS: IBUPROFEN 400 MG TABLET. PO PRN (15:18)
[2016-11-22 19:25] VITALS: BP 118/70
[2016-11-22 23:25] VITALS: BP 112/78
[2016-11-23] MEDS: GABAPENTIN 300 MG CAPSULE. PO PRN
[2016-11-23 03:18] VITALS: BP 134/85
[2016-11-23] MEDS: oxyCODONE/APAP 7.5/325 1 TAB TABLET PO PRN (06:46)
[2016-11-23 07:00] VITALS: BP 145/85
[2016-11-23] MEDS: fentaNYL PF VIAL 100 MCG/2 ML VIAL IV PRN (07:24)
--- NOTE | 2016-11-23 07:27 | PDOC ---
ORTHO PROGRESS NOTES Subjective Pain doing ok, but she would like aditional help. Pain not steadily progressive. Vitals Vital Signs Date Time Temp Pulse Resp B/P (MAP) Pulse Ox O2 Delivery O2 Flow Rate FiO2 11/23/16 07:24 18 Room Air 11/23/16 03:18 98.5 74 134/85 (101) 95 98.5 Labs Laboratory Tests Test 11/22/16 06:10 11/22/16 13:47 White Blood Count 11.7 x10^3/uL (4.0-11.0) Red Blood Count 4.07 x10^6/uL (3.50-5.40) Hemoglobin 12.4 g/dL (12.0-15.5) Hematocrit 36.3 % (36.0-47.0) Mean Corpuscular Volume 89 fL (79-100) Mean Corpuscular Hemoglobin 30 pg (25-35) Mean Corpuscular Hemoglobin Concent 34 g/dL (31-37) Red Cell Distribution Width 13.5 % (11.5-14.5) Platelet Count 284 x10^3/uL (140-400) Neutrophils (%) (Auto) 77 % (31-73) Lymphocytes (%) (Auto) 17 % (24-48) Monocytes (%) (Auto) 5 % (0-9) Eosinophils (%) (Auto) 0 % (0-3) Basophils (%) (Auto) 1 % (0-3) Neutrophils # (Auto) 9.0 x10^3uL (1.8-7.7) Lymphocytes # (Auto) 2.0 x10^3/uL (1.0-4.8) Monocytes # (Auto) 0.5 x10^3/uL (0.0-1.1) Eosinophils # (Auto) 0.1 x10^3/uL (0.0-0.7) Basophils # (Auto) 0.1 x10^3/uL (0.0-0.2) Prothrombin Time 12.5 SEC (11.7-14.0) Prothromb Time International Ratio 1.0 (0.8-1.1) Sodium Level 145 mmol/L (136-145) Potassium Level 3.6 mmol/L (3.5-5.1) Chloride Level 109 mmol/L (98-107) Carbon Dioxide Level 29 mmol/L (21-32) Anion Gap 7 (6-14) Blood Urea Nitrogen 7 mg/dL (7-20) Creatinine 0.8 mg/dL (0.6-1.0) Estimated GFR (Cockcroft-Gault) 75.3 BUN/Creatinine Ratio 9 (6-20) Glucose Level 138 mg/dL (70-99) Calcium Level 8.6 mg/dL (8.5-10.1) Total Bilirubin 0.2 mg/dL (0.2-1.0) Aspartate Amino Transf (AST/SGOT) 81 U/L (15-37) Alanine Aminotransferase (ALT/SGPT) 56 U/L (14-59) Alkaline Phosphatase 108 U/L (46-116) Total Protein 7.6 g/dL (6.4-8.2) Albumin 3.8 g/dL (3.4-5.0) Albumin/Globulin Ratio 1.0 (1.0-1.7) Urine Collection Type Unknown Urine Color Yellow Urine Clarity Clear Urine pH 6.0 Urine Specific [place] 1.015 Urine Protein 30 mg/dL (NEG-TRACE) Urine Glucose (UA) Negative mg/dL (NEG) Urine Ketones (Stick) Negative mg/dL (NEG) Urine Blood Large (NEG) Urine Nitrite Negative (NEG) Urine Bilirubin Negative (NEG) Urine Urobilinogen Dipstick 0.2 mg/dL (0.2 mg/dL) Urine Leukocyte Esterase Negative (NEG) Urine RBC 6-10 /HPF (0-2) Urine WBC Rare /HPF (0-4) Urine Squamous Epithelial Cells Few /LPF Urine Bacteria Few /HPF (0-FEW) Urine Hyaline Casts Occasional /HPF Urine Mucus Marked /LPF Laboratory Tests Test 11/22/16 13:47 Urine Collection Type Unknown Urine Color Yellow Urine Clarity Clear Urine pH 6.0 Urine Specific [place] 1.015 Urine Protein 30 mg/dL (NEG-TRACE) Urine Glucose (UA) Negative mg/dL (NEG) Urine Ketones (Stick) Negative mg/dL (NEG) Urine Blood Large (NEG) Urine Nitrite Negative (NEG) Urine Bilirubin Negative (NEG) Urine Urobilinogen Dipstick 0.2 mg/dL (0.2 mg/dL) Urine Leukocyte Esterase Negative (NEG) Urine RBC 6-10 /HPF (0-2) Urine WBC Rare /HPF (0-4) Urine Squamous Epithelial Cells Few /LPF Urine Bacteria Few /HPF (0-FEW) Urine Hyaline Casts Occasional /HPF Urine Mucus Marked /LPF Notes A and A LLE: HKB in place more edema, small serous blisters present anteriorly DP 2+ normal sensation, wiggles toes compartments soft no pain with PROM of great toe or ankle Assessment and Plan PT to help mobilize From my standpoint, she could go home later today if she is able to get around with walker/crutches If not, will need placement until surgery MIGDALIA CAMPBELL II, MD Nov 23, 2016 07:27
[2016-11-23] MEDS: CETIRIZINE HCL 10 MG TABLET. PO SCH (09:08)
[2016-11-23] MEDS: ENOXAPARIN 40 MG/0.4 ML SYRINGE. SQ SCH (09:09)
--- NOTE | 2016-11-23 09:23 | RAD ---
EXAM: 1. CT left knee without contrast. 2. Three-dimensional reconstructions. HISTORY: Tibial plateau fracture. TECHNIQUE: CT of the left knee was performed without intravenous contrast. Three-dimensional reconstructions were also performed. COMPARISON: 11/22/2016. FINDINGS: There is a highly comminuted fracture of the lateral tibial plateau. Other fracture lines extend to the intercondylar notch. The main fracture lines traverse the lateral plateau in coronal and sagittal planes. There is a large central articular surface defect that measures 2.0 cm laterally and 2.4 cm anteroposteriorly. The main fragment from the defect is depressed and rotated 90 degrees such that the articular surface of the fragment effaces mostly laterally. There is depression by 2 cm. The main lateral fracture fragments are mildly displaced laterally and posteriorly by 4 mm and depressed by 7 mm. Fracture lines also intersect the proximal tibiofibular joint. There is a comminuted fracture of the proximal fibula. The main fracture line is in the sagittal plane and intersects the fibular styloid. A lipohemarthrosis is noted. There are moderate osteophytes along the medial and lateral compartments with moderate medial compartmental joint space narrowing. Soft tissue swelling is noted predominantly anteriorly. IMPRESSION: 1. Highly comminuted fracture of the lateral tibial plateau extending to the intercondylar notch. This results in large articular surface defects measuring 2.4 x 2.0 cm. The main central fragment of this defect is depressed by 2 cm and rotated 90 degrees. 2. Comminuted fracture of the proximal fibula. 3. Moderate osteoarthritis. One or more of the following individualized dose reduction techniques were utilized for this examination: 1. Automated exposure control. 2. Adjustment of the mA and/or kV according to patient size. 3. Use of iterative reconstruction technique.
[2016-11-23] MEDS: oxyCODONE/APAP 10/325 1 TAB TABLET PO PRN ×3 (10:37→19:52)
[2016-11-23 11:00] VITALS: BP 142/84
--- NOTE | 2016-11-23 11:09 | PDOC ---
PROGRESS NOTES Chief Complaint Chief Complaint cc: pain f A/P Fracture of left tibial plateau, HTN Intractable pain due to above. Plan not a surgical candidate PT/OT Pain control- iv fentanyl, SNU VS home based on PT assessment. Vitals Vitals Vital Signs Date Time Temp Pulse Resp B/P (MAP) Pulse Ox O2 Delivery O2 Flow Rate FiO2 11/23/16 10:37 18 Room Air 11/23/16 07:00 99.0 78 145/85 (105) 95 99.0 Physical Exam General: Oriented X3, Cooperative, No acute distress Abdomen: Normal bowel sounds, Soft Extremities: No clubbing, Normal pulses, Other (left knee edema, pulses intact , sensations intact. ) Skin: No significant lesion Labs LABS Laboratory Tests Test 11/22/16 13:47 Urine Collection Type Unknown Urine Color Yellow Urine Clarity Clear Urine pH 6.0 Urine Specific [place] 1.015 Urine Protein 30 mg/dL (NEG-TRACE) Urine Glucose (UA) Negative mg/dL (NEG) Urine Ketones (Stick) Negative mg/dL (NEG) Urine Blood Large (NEG) Urine Nitrite Negative (NEG) Urine Bilirubin Negative (NEG) Urine Urobilinogen Dipstick 0.2 mg/dL (0.2 mg/dL) Urine Leukocyte Esterase Negative (NEG) Urine RBC 6-10 /HPF (0-2) Urine WBC Rare /HPF (0-4) Urine Squamous Epithelial Cells Few /LPF Urine Bacteria Few /HPF (0-FEW) Urine Hyaline Casts Occasional /HPF Urine Mucus Marked /LPF Assessment and Plan Assessmemt and Plan Problems Medical Problems: (1) Fracture of head of fibula Status: Acute (2) Tibial plateau fracture, left Status: Acute Problems: Comment Review of Relevant I have reviewed the following items lillian (where applicable) has been applied. Labs Laboratory Tests Test 11/22/16 06:10 11/22/16 13:47 White Blood Count 11.7 x10^3/uL (4.0-11.0) Red Blood Count 4.07 x10^6/uL (3.50-5.40) Hemoglobin 12.4 g/dL (12.0-15.5) Hematocrit 36.3 % (36.0-47.0) Mean Corpuscular Volume 89 fL (79-100) Mean Corpuscular Hemoglobin 30 pg (25-35) Mean Corpuscular Hemoglobin Concent 34 g/dL (31-37) Red Cell Distribution Width 13.5 % (11.5-14.5) Platelet Count 284 x10^3/uL (140-400) Neutrophils (%) (Auto) 77 % (31-73) Lymphocytes (%) (Auto) 17 % (24-48) Monocytes (%) (Auto) 5 % (0-9) Eosinophils (%) (Auto) 0 % (0-3) Basophils (%) (Auto) 1 % (0-3) Neutrophils # (Auto) 9.0 x10^3uL (1.8-7.7) Lymphocytes # (Auto) 2.0 x10^3/uL (1.0-4.8) Monocytes # (Auto) 0.5 x10^3/uL (0.0-1.1) Eosinophils # (Auto) 0.1 x10^3/uL (0.0-0.7) Basophils # (Auto) 0.1 x10^3/uL (0.0-0.2) Prothrombin Time 12.5 SEC (11.7-14.0) Prothromb Time International Ratio 1.0 (0.8-1.1) Sodium Level 145 mmol/L (136-145) Potassium Level 3.6 mmol/L (3.5-5.1) Chloride Level 109 mmol/L (98-107) Carbon Dioxide Level 29 mmol/L (21-32) Anion Gap 7 (6-14) Blood Urea Nitrogen 7 mg/dL (7-20) Creatinine 0.8 mg/dL (0.6-1.0) Estimated GFR (Cockcroft-Gault) 75.3 BUN/Creatinine Ratio 9 (6-20) Glucose Level 138 mg/dL (70-99) Calcium Level 8.6 mg/dL (8.5-10.1) Total Bilirubin 0.2 mg/dL (0.2-1.0) Aspartate Amino Transf (AST/SGOT) 81 U/L (15-37) Alanine Aminotransferase (ALT/SGPT) 56 U/L (14-59) Alkaline Phosphatase 108 U/L (46-116) Total Protein 7.6 g/dL (6.4-8.2) Albumin 3.8 g/dL (3.4-5.0) Albumin/Globulin Ratio 1.0 (1.0-1.7) Urine Collection Type Unknown Urine Color Yellow Urine Clarity Clear Urine pH 6.0 Urine Specific [place] 1.015 Urine Protein 30 mg/dL (NEG-TRACE) Urine Glucose (UA) Negative mg/dL (NEG) Urine Ketones (Stick) Negative mg/dL (NEG) Urine Blood Large (NEG) Urine Nitrite Negative (NEG) Urine Bilirubin Negative (NEG) Urine Urobilinogen Dipstick 0.2 mg/dL (0.2 mg/dL) Urine Leukocyte Esterase Negative (NEG) Urine RBC 6-10 /HPF (0-2) Urine WBC Rare /HPF (0-4) Urine Squamous Epithelial Cells Few /LPF Urine Bacteria Few /HPF (0-FEW) Urine Hyaline Casts Occasional /HPF Urine Mucus Marked /LPF Laboratory Tests Test 11/22/16 13:47 Urine Collection Type Unknown Urine Color Yellow Urine Clarity Clear Urine pH 6.0 Urine Specific [place] 1.015 Urine Protein 30 mg/dL (NEG-TRACE) Urine Glucose (UA) Negative mg/dL (NEG) Urine Ketones (Stick) Negative mg/dL (NEG) Urine Blood Large (NEG) Urine Nitrite Negative (NEG) Urine Bilirubin Negative (NEG) Urine Urobilinogen Dipstick 0.2 mg/dL (0.2 mg/dL) Urine Leukocyte Esterase Negative (NEG) Urine RBC 6-10 /HPF (0-2) Urine WBC Rare /HPF (0-4) Urine Squamous Epithelial Cells Few /LPF Urine Bacteria Few /HPF (0-FEW) Urine Hyaline Casts Occasional /HPF Urine Mucus Marked /LPF Medications Current Medications Hydromorphone HCl (Dilaudid) 1 mg 1X ONCE IV Last administered on 11/22/16 04 :20; Start 11/22/16 at 04:30; Stop 11/22/16 at 04:31; Status DC Ondansetron HCl (Zofran Odt) 4 mg 1X ONCE PO Last administered on 11/22/16 04 :20; Start 11/22/16 at 04:30; Stop 11/22/16 at 04:31; Status DC Ondansetron HCl (Zofran) 4 mg PRN Q8HRS PRN IV NAUSEA/VOMITING Last administered on 11/22/16 18:18; Start 11/22/16 at 05:45; Stop 11/23/16 at 05:44 ; Status DC Fentanyl Citrate (Fentanyl 2ml Vial) 50 mcg PRN Q1HR PRN IV SEVERE PAIN Last administered on 11/22/16 11:48; Start 11/22/16 at 05:45; Stop 11/23/16 at 05:44 ; Status DC Sodium Chloride 1,000 ml @ 125 mls/hr Q8H IV Last administered on 11/22/16 21 :54; Start 11/22/16 at 05:44; Stop 11/23/16 at 05:43; Status DC Oxycodone/ Acetaminophen (Percocet 7.5/ 325) 1 tab PRN Q4HRS PRN PO PAIN Last administered on 11/23/16 06:46; Start 11/22/16 at 09:00; Stop 11/23/16 at 07:25 ; Status DC Enoxaparin Sodium (Lovenox 40mg Syringe) 40 mg Q24H SQ Last administered on 09:09; Start 11/22/16 at 09:00 Senna/Docusate Sodium (Senna Plus) 1 tab PRN BID PRN PO CONSTIPATION; Start at 08:15 Cetirizine HCl (ZyrTEC) 10 mg DAILY PO Last administered on 11/23/16 09:08; Start 11/22/16 at 11:00 Ibuprofen (Motrin) 400 mg PRN Q6HRS PRN PO INFLAMMATION Last administered on 15:18; Start 11/22/16 at 11:15 Non-Formulary Medication 1 puff PRN Q6HRS PRN INH SHORTNESS OF BREATH; Start at 10:45; Stop 11/22/16 at 11:12; Status DC Gabapentin (Neurontin) 300 mg PRN QHS PRN PO Neuroleptic pain Last administered on 11/23/16 00:00; Start 11/22/16 at 21:00 Albuterol Sulfate (Ventolin Neb Soln) 2.5 mg PRN Q6HRS PRN NEB SHORTNESS OF BREATH; Start 11/22/16 at 11:15 Fentanyl Citrate (Fentanyl 2ml Vial) 50 mcg PRN Q2HR PRN IV PAIN Last administered on 11/23/16 07:24; Start 11/23/16 at 07:15 Oxycodone/ Acetaminophen (Percocet 10/325) 1 tab PRN Q4HRS PRN PO PAIN Last administered on 11/23/16t 10:37; Start 11/23/16 at 07:30 Active Scripts Active Reported Gabapentin 300 Mg Capsule 300 Mg PO QHS PRN Ibuprofen 200 Mg Tablet 400 Mg PO PRN PRN Zyrtec (Cetirizine Hcl) 10 Mg Tablet 10 Mg PO DAILY Proair Hfa Inhaler (Albuterol Sulfate) 8.5 Gm Hfa.aer.ad 1 Puff INH PRN Q6HRS PRN Vitals/I & O Vital Sign - Last 24 Hours 11/22/16 11/22/16 11/22/16 11/22/16 11:12 11:48 12:20 12:21 Resp 18 18 18 O2 Delivery Room Air Room Air Room Air 11/22/16 11/22/16 11/22/16 11/22/16 15:00 19:25 20:00 23:25 Temp 98.3 98.6 99.0 98.3 98.6 99.0 Pulse 91 76 64 Resp 20 16 18 B/P (MAP) 131/80 (97) 118/70 (86) 112/78 (89) Pulse Ox 96 95 94 O2 Delivery Room Air Room Air Room Air Room Air 11/22/16 11/23/16 11/23/16 11/23/16 23:59 03:18 06:46 07:00 Temp 98.5 99.0 98.5 99.0 Pulse 74 78 Resp 18 18 20 18 B/P (MAP) 134/85 (101) 145/85 (105) Pulse Ox 95 95 O2 Delivery Room Air Room Air Room Air Room Air 11/23/16 11/23/16 11/23/16 11/23/16 07:24 08:00 08:00 08:10 Resp 18 16 16 O2 Delivery Room Air Room Air Room Air Room Air 11/23/16 10:37 Resp 18 O2 Delivery Room Air Intake and Output 11/22/16 11/22/16 11/23/16 15:00 23:00 07:00 Intake Total 251 ml 1900 ml Output Total 350 ml 855 ml 1500 ml Balance -350 ml -604 ml 400 ml CHIQUITA PRATT MD Nov 23, 2016 11:09
[2016-11-23 15:00] VITALS: BP 136/83
[2016-11-23 19:17] VITALS: BP 133/75
[2016-11-23] MEDS: IBUPROFEN 400 MG TABLET. PO PRN (20:51)
[2016-11-23 23:26] VITALS: BP 144/82
[2016-11-24] MEDS: oxyCODONE/APAP 10/325 1 TAB TABLET PO PRN ×3 (00:32→10:08)
[2016-11-24] MEDS: GABAPENTIN 300 MG CAPSULE. PO PRN (00:32)
[2016-11-24 03:17] VITALS: BP 9/75
[2016-11-24 07:00] VITALS: BP 86/51
[2016-11-24] MEDS: CETIRIZINE HCL 10 MG TABLET. PO SCH (10:03)
[2016-11-24] MEDS: IBUPROFEN 400 MG TABLET. PO PRN (10:03)
[2016-11-24] MEDS ORDERED: SENN-22 PO (10:06)
[2016-11-24] MEDS ORDERED: OXYC1TAB9 PO (10:06)
--- NOTE | 2016-11-24 10:35 | PDOC ---
ORTHO PROGRESS NOTES Subjective pain tolerable, + flatus. No other complaints Vitals Vital Signs Date Time Temp Pulse Resp B/P (MAP) Pulse Ox O2 Delivery O2 Flow Rate FiO2 11/24/16 10:08 92 Room Air 11/24/16 07:00 98.1 82 20 86/51 (63) 98.1 Labs Laboratory Tests Test 11/22/16 13:47 Urine Collection Type Unknown Urine Color Yellow Urine Clarity Clear Urine pH 6.0 Urine Specific [place] 1.015 Urine Protein 30 mg/dL (NEG-TRACE) Urine Glucose (UA) Negative mg/dL (NEG) Urine Ketones (Stick) Negative mg/dL (NEG) Urine Blood Large (NEG) Urine Nitrite Negative (NEG) Urine Bilirubin Negative (NEG) Urine Urobilinogen Dipstick 0.2 mg/dL (0.2 mg/dL) Urine Leukocyte Esterase Negative (NEG) Urine RBC 6-10 /HPF (0-2) Urine WBC Rare /HPF (0-4) Urine Squamous Epithelial Cells Few /LPF Urine Bacteria Few /HPF (0-FEW) Urine Hyaline Casts Occasional /HPF Urine Mucus Marked /LPF Notes A and A HKB in place LLE edema unchanged, blisters unchanged remains NVI compartment soft no pain with PROM Assessment and Plan closed L tibial plateau fracture ok to go home f/u next in my clinic to schedule surgery ADILENE ALBRIGHT, MIGDALIA Bryan II, MD Nov 24, 2016 10:35
[2016-11-24 11:00] VITALS: BP 110/71
[2016-11-24] MEDS: fentaNYL PF VIAL 100 MCG/2 ML VIAL IV PRN (11:35)
[2016-11-24] MEDS: ENOXAPARIN 40 MG/0.4 ML SYRINGE. SQ SCH (11:37)
--- NOTE | 2016-11-24 13:55 | PDOC3 ---
Discharge Summary [facility] Date of Admission: Nov 22, 2016 Discharge Date: Nov 24, 2016 Admitting Diagnosis Fracture of left tibial plateau, HTN Intractable pain due to above. Plan not a surgical candidate PT/OT Pain control- iv fentanyl, SNU VS home based on PT assessment. Vitals Vitals Vital Signs Date Time Temp Pulse Resp B/P (MAP) Pulse Ox O2 Delivery O2 Flow Rate FiO2 11/23/16 10:37 18 Room Air 11/23/16 07:00 99.0 78 145/85 (105) 95 99.0 Physical Exam Problems: Final Diagnosis CONSULTS dr. Walker Brief Hospital Course Ms. Cyr is a 51 old F, comes post fall, was found left tibial plateau fx. no sx done yet 2/2 edema. dc home with pain control, fu with dr. Walker next week for plan for sx. dc time 35min General: Oriented X3, Cooperative, No acute distress Abdomen: Normal bowel sounds, Soft Extremities: No clubbing, Normal pulses, Other (left knee edema, pulses intact , sensations intact. has splinter on) Skin: No significant lesion Problems: Disposition home CONDITION AT DISCHARGE: Improved Diet regular Scheduled Cetirizine Hcl (Zyrtec), 10 MG PO DAILY, (Reported) Scheduled PRN Albuterol Sulfate (Proair Hfa Inhaler), 1 PUFF INH PRN Q6HRS PRN for SHORTNESS OF BREATH, (Reported) Gabapentin (Gabapentin), 300 MG PO QHS PRN for PAIN, (Reported) Oxycodone Hcl/Acetaminophen (Oxycodone-Acetaminophen 10-325), 1 TAB PO PRN Q4HRS PRN for PAIN Sennosides/Docusate Sodium (Senna-Time S Tablet), 1 TAB PO PRN BID PRN for CONSTIPATION Discontinued Medications Ibuprofen (Ibuprofen), 400 MG PO PRN PRN for INFLAMMATION, (Reported) Follow Up ortho next week SONAM CALDERON MD Nov 24, 2016 13:54
[2016-11-24 15:00] VITALS: BP 122/50
== END 2016-11-24 15:30 | disposition home or self-care (01) | DRG 563 ==
LOC: ER 03:28 → 4 NORTH 05:50
PROVIDERS: ADMIT Internal Medicine; ATTEND Internal Medicine
DX: S82.142A Displaced bicondylar fracture of left tibia, initial encounter for closed fracture (principal); E66.9 Obesity, unspecified; I10 Essential (primary) hypertension; W18.39XA Other fall on same level, initial encounter; J45.909 Unspecified asthma, uncomplicated; Y93.K1 Activity, walking an animal; Z68.33 Body mass index [BMI] 33.0-33.9, adult; Y92.89 Other specified places as the place of occurrence of the external cause; Y99.8 Other external cause status; Z88.0 Allergy status to penicillin; S82.832A Other fracture of upper and lower end of left fibula, initial encounter for closed fracture
CPT/HCPCS: 36415; 71010; 73562; 73590; 73700; 80053; 81001; 85027; 85610; 93005; 96374; J1170; J1650; J2405; J3010; J7030; Q0162; 97116; 97530; 99285-25